=== PATIENT | female | born 1990 | race Hispanic/Latino ===

== ENCOUNTER 2020-08-11 10:13 | Emergency (ER) | payer SELFPAY ==
[2020-08-12 17:29] LABS: HEMOGLOBIN 14.8 g/dL (12.0-16.0)
[2020-08-12 17:30] LABS: BASOPHILS % 0.5 % (0.0-1.0); CLARITY,URINE SL CLOUDY (CLEAR); COLOR,URINE RED (YELLOW); EOSINOPHILS % 0.9 % (0.0-6.0); HEMATOCRIT 44.9 % (34.2-44.1); LEUKOCYTE ESTERASE ,URINE NEGATIVE (NEGATIVE); LYMPHOCYTES % 30.7 % (18.0-39.1); MEAN CORPUSCULAR HEMOGLOBIN 27.9 pg (28-32); MEAN CORPUSCULAR VOLUME 84.7 fL (81-99); MONOCYTES % 7.6 % (4.4-11.3); NEUTROPHILS % 59.9 % (38.7-80.0); NITRITE,URINE NEGATIVE (NEGATIVE); PLATELET COUNT 341 x10e3/uL (140-360); RED CELL DISTRIBUTION WIDTH 12.3 % (11.7-14.4)
[2020-08-12 17:31] LABS: AMORPHOUS SEDIMENT,URINE FEW (FEW); BACTERIA,URINE MODERATE /HPF; EPITHELIAL CELLS,URINE MODERATE /LPF; KETONES,URINE NEGATIVE (NEGATIVE); PROTEIN,URINE DIPSTICK 2+ (NEGATIVE); URINE UROBILINOGEN 0.2 mg/dL (0.2 - 1); WBC,URINE (MAN) 0-5 /HPF (0-5)
== END 2020-08-11 18:45 | disposition home or self-care (01) ==
LOC: ER 10:13
DX: O26.851 Spotting complicating pregnancy, first trimester (principal); O20.0 Threatened abortion
CPT/HCPCS: 36415; 81001; 84702; 85025; 99283

== ENCOUNTER 2021-10-28 07:07 | Emergency (ER) | payer OTHER ==
[~2021-10-28] VITALS: Ht 154.9 cm; Wt 81.6 kg
[2021-10-28] MEDS ORDERED: SODIUM CHLORIDE FLUSH 10 ML SYR IV PRN (07:30)
[2021-10-28 07:31] LABS: BASOPHILS # (AUTO) 0.1 (0.0-0.1); BASOPHILS % 0.6 % (0.0-1.0); EOSINOPHILS % 0.4 % (0.0-6.0); HEMATOCRIT 44.5 % (34.2-44.1); HEMOGLOBIN 14.7 g/dL (12.0-16.0); LYMPHOCYTES # (AUTO) 2.7 (1.0-3.2); LYMPHOCYTES % 29.7 % (18.0-39.1); MEAN CORPUSCULAR HEMOGLOBIN 28.5 pg (28-32); MEAN CORPUSCULAR VOLUME 86.2 fL (81-99); MONOCYTES # (AUTO) 0.6 (0.2-0.8); MONOCYTES % 6.9 % (4.4-11.3); NEUTROPHILS # (AUTO) 5.6 (2.1-6.9); NEUTROPHILS % 62.1 % (38.7-80.0); PLATELET COUNT 333 x10e3/uL (140-360); RED BLOOD COUNT 5.16 x10e6/uL (3.6-5.1); RED CELL DISTRIBUTION WIDTH 12.3 % (11.7-14.4)
[2021-10-28 07:45] LABS: CLARITY,URINE CLOUDY (CLEAR); COLOR,URINE YELLOW (YELLOW); KETONES,URINE 1+ (NEGATIVE); LEUKOCYTE ESTERASE ,URINE TRACE (NEGATIVE); NITRITE,URINE NEGATIVE (NEGATIVE); PROTEIN,URINE DIPSTICK NEGATIVE (NEGATIVE); URINE UROBILINOGEN 0.2 mg/dL (0.2 - 1)
[2021-10-28 07:48] LABS: EPITHELIAL CELLS,URINE MANY /LPF; RBC,URINE 0-5 /HPF (0-5)
[2021-10-28 07:50] LABS: BACTERIA,URINE MANY /HPF
[2021-10-28 07:51] LABS: ALBUMIN/GLOBULIN RATIO 1.1 (0.8-2.0); ANION GAP 17.7 mmol/L (8-16); CALCIUM 9.2 mg/dL (8.4-10.2); CREATININE, SERUM 0.74 mg/dL (0.57-1.11); POTASSIUM 3.7 mmol/L (3.5-5.1)
[2021-10-28] MEDS ORDERED: CEFDINIR300 MG PO (09:14)
[2021-10-28 09:32] VITALS: BP 112/84
== END 2021-10-28 09:36 | disposition home or self-care (01) ==
LOC: ER 07:11
DX: O20.9 Hemorrhage in early pregnancy, unspecified (principal); O23.41 Unspecified infection of urinary tract in pregnancy, first trimester; N39.0 Urinary tract infection, site not specified; R10.30 Lower abdominal pain, unspecified
CPT/HCPCS: 36415; 76801; 76817; 80053; 81001; 84702; 85025; 86900; 99284